=== PATIENT | male | born 1990 | race Hispanic/Latino ===

== ENCOUNTER 2018-02-14 18:46 | Emergency (ER) | payer OTHER ==
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
[2018-02-15] MEDS ORDERED: TORADOL IM ONE (01:30)
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
[2018-02-15 01:35] VITALS: BP 113/72
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
== END 2018-02-15 02:05 | disposition home or self-care (01) ==
LOC: ED 18:46
DX: S06.0X9A Concussion with loss of consciousness of unspecified duration, initial encounter (principal); S16.1XXA Strain of muscle, fascia and tendon at neck level, initial encounter; V49.49XA Driver injured in collision with other motor vehicles in traffic accident, initial encounter; Y93.89 Activity, other specified; Y92.89 Other specified places as the place of occurrence of the external cause; Y99.8 Other external cause status
CPT/HCPCS: 70450; 72040; 96372; 99284; J1885